=== PATIENT | female | born 1995 | race Caucasian/White ===

== ENCOUNTER → 2019-11-12 11:57 | Outpatient (CLI) | payer MEDICAID ==
[2019-11-12 12:17] LABS: APPEARANCE CLEAR (CLEAR); BILIRUBIN NEGATIVE (NEGATIVE); COLOR YELLOW (YELLOW); GLUCOSE NEGATIVE (NEGATIVE); KETONE NEGATIVE (NEGATIVE); NITRITE NEGATIVE (NEGATIVE); PROTEIN TRACE mg/dL (NEGATIVE); SPECIFIC GRAVITY 1.015 (1.005-1.020); UROBILINOGEN NORMAL (NORMAL)
[2019-11-12 12:18] LABS: BACTERIA MODERATE /hpf (NEGATIVE); EPITHELIAL CELLS 0-5 /hpf (0-5)
[2019-11-12 13:48] LABS: BASOPHILS 0.2 % (0-2); EOSINOPHILS 0.7 % (0-7); HEMATOCRIT 35.2 % (36.0-48.0); HEMOGLOBIN 12.4 g/dL (12-16); IMMATURE GRANULOCYTES 0.2 % (0-5); LYMPHOCYTES 19.4 % (15-50); MCH 32.2 pg (26.0-34.0); MCHC 35.2 g/dL (31.0-37.0); MCV 91.4 fL (80.0-100.0); MEAN PLATELET VOLUME 10.9 fL (7.4-10.4); MONOCYTES 4.2 % (2-11); NEUTROPHILS 75.3 % (40-80); PLATELET COUNT 248 10x3/uL (130-400); RBC 3.85 10x6/uL (4.00-5.40); RDW 12.7 % (11.5-14.5); WBC 9.1 10x3/uL (4.8-10.8)
[2019-11-12 13:54] LABS: CALC OSMOLALITY 273 mosm/kg (275-300); CALCIUM 9.1 mg/dL (8.5-10.1); CARBON DIOXIDE 21.8 mmol/L (21.0-32.0); CHLORIDE - SERUM 104 mmol/L (98-107); CREATININE - SERUM 0.6 mg/dL (0.6-1.3); GLUCOSE 122 mg/dL (74-106); SODIUM 137 mmol/L (136-145); UREA NITROGEN 11 mg/dL (7-18); eGFR NON AFRICAN AMERICAN > 90 mL/min (90-120)
[2019-11-12 14:01] LABS: ALBUMIN 2.5 g/dL (3.4-5.0); ALKALINE PHOSPHATASE 152 U/L (30-120); ALT (SGPT) 15 U/L (10-68); URIC ACID 3.5 mg/dL (2.6-7.2)
[2019-11-12 14:05] LABS: BILIRUBIN - DIRECT 0.02 mg/dL (0.00-0.30); BILIRUBIN - INDIRECT 0.07 mg/dL (0.00-1.00); BILIRUBIN - TOTAL 0.09 mg/dL (0.2-1.3)
== END | disposition home or self-care (01) ==
LOC: D.LDO 11:57
PROVIDERS: ATTEND Student in an Organized Health Care Education/Training Program
DX: O26.899 Other specified pregnancy related conditions, unspecified trimester (principal); Z3A.00 Weeks of gestation of pregnancy not specified; R51 Headache

== ENCOUNTER 2020-05-15 09:19 | Emergency (ER) | payer OTHER ==
[~2020-05-15] VITALS: Ht 167.6 cm; Wt 87.3 kg
[2020-05-15 09:30] VITALS: Ht 167.6 cm; Wt 87.3 kg
[2020-05-15] MEDS ORDERED: GABAPENTIN300 MG PO (09:31)
[2020-05-15] MEDS ORDERED: FERROUS SULFAT325 MG PO (09:32)
[2020-05-15] MEDS ORDERED: ASCORBIC ACID500 MG PO (09:32)
[2020-05-15] MEDS ORDERED: VITAMIN D1000 UNIT PO (09:32)
[2020-05-15 09:48] LABS: BILIRUBIN NEGATIVE (NEGATIVE); GLUCOSE NEGATIVE (NEGATIVE); KETONE NEGATIVE (NEGATIVE); NITRITE NEGATIVE (NEGATIVE); UROBILINOGEN NORMAL (NORMAL)
[2020-05-15 09:50] LABS: RED CELLS - URINE 0-5 /hpf (0-5)
[2020-05-15 09:51] LABS: BACTERIA FEW /hpf (NEGATIVE); HCG URINE NEGATIVE (NEGATIVE)
[2020-05-15 10:11] LABS: BASOPHILS 0.4 % (0-2); EOSINOPHILS 1.7 % (0-7); HEMATOCRIT 39.8 % (36.0-48.0); HEMOGLOBIN 13.3 g/dL (12-16); IMMATURE GRANULOCYTES 0.1 % (0-5); LYMPHOCYTES 26.2 % (15-50); MCH 30.8 pg (26.0-34.0); MCHC 33.4 g/dL (31.0-37.0); MCV 92.1 fL (80.0-100.0); MEAN PLATELET VOLUME 10.2 fL (7.4-10.4); MONOCYTES 7.7 % (2-11); NEUTROPHILS 63.9 % (40-80); PLATELET COUNT 297 10x3/uL (130-400); RBC 4.32 10x6/uL (4.00-5.40); RDW 13.5 % (11.5-14.5); WBC 8.4 10x3/uL (4.8-10.8)
[2020-05-15 10:47] LABS: CALC OSMOLALITY 277 mosm/kg (275-300); CALCIUM 9.1 mg/dL (8.5-10.1); CARBON DIOXIDE 28.4 mmol/L (21.0-32.0); CHLORIDE - SERUM 105 mmol/L (98-107); CREATININE - SERUM 0.6 mg/dL (0.6-1.3); GLUCOSE 90 mg/dL (74-106); POTASSIUM - SERUM 4.2 mmol/L (3.5-5.1); SODIUM 140 mmol/L (136-145); UREA NITROGEN 10 mg/dL (7-18); eGFR NON AFRICAN AMERICAN > 90 mL/min (90-120)
[2020-05-15 10:55] LABS: ALBUMIN 3.4 g/dL (3.4-5.0); ALKALINE PHOSPHATASE 131 U/L (30-120); ALT (SGPT) 68 U/L (10-68); AMYLASE - SERUM 18 U/L (25-115); BILIRUBIN - TOTAL 0.26 mg/dL (0.2-1.3); LIPASE 53 U/L (73-393); PROTEIN - SERUM 6.6 g/dL (6.4-8.2)
[2020-05-15 10:56] LABS: TROPONIN-I < 0.017 ng/mL (0.000-0.060)
[2020-05-15] MEDS ORDERED: VOLTAREN75 MG PO (11:39)
[2020-05-15] MEDS ORDERED: MACROBID100 MG PO (11:39)
[2020-05-15] MEDS ORDERED: ZOFRAN ODT4 MG/UDTAB PO (11:39)
[2020-05-15 12:05] VITALS: BP 118/64
== END 2020-05-15 12:06 | disposition home or self-care (01) ==
LOC: D.ER 09:19
PROVIDERS: Family Medicine
DX: N39.0 Urinary tract infection, site not specified (principal); R10.9 Unspecified abdominal pain; R11.0 Nausea; R30.0 Dysuria; R31.9 Hematuria, unspecified

== ENCOUNTER 2021-02-22 17:59 | Emergency (ER) | payer OTHER ==
[~2021-02-22] VITALS: Ht 167.6 cm; Wt 83.6 kg
[~2021-02-22 17:59] MED LIST: ASCORBIC ACID500 MG PO; FERROUS SULFAT325 MG PO; GABAPENTIN300 MG PO; MACROBID100 MG PO; PRED FORTE5 ML LEFT EYE; VIGAMOX3 ML; VITAMIN D1000 UNIT PO; VOLTAREN75 MG PO; ZOFRAN ODT4 MG/UDTAB PO; ZOVIRAX200 MG PO
[2021-02-22 18:11] VITALS: BP 109/57; Ht 167.6 cm; Wt 83.6 kg
[2021-02-22] MEDS ORDERED: BUPRENORPHIN-N1 EACH SL (18:14)
[2021-02-22] MEDS ORDERED: DICLOFENAC SODI50 MG PO (19:06)
== END 2021-02-22 19:50 | disposition home or self-care (01) ==
LOC: D.ER 17:59
DX: S93.402A Sprain of unspecified ligament of left ankle, initial encounter (principal); X58.XXXA Exposure to other specified factors, initial encounter